=== PATIENT | male | born 1970 | race Caucasian/White ===

== ENCOUNTER → 2019-01-25 | Outpatient (CLI) | payer OTHER ==
--- NOTE | 2019-01-25 12:29 | CARD ---
MR#: [id number] Date of Study: 01/25/2019 Ordering Physician: URSZULA BO, Referring Physician: URSZULA BO, Tech: Pat Cole APPROVED REPORT EXAM: Two-dimensional and M-mode echocardiogram with Doppler and color Doppler. Other Information Quality : AverageHR: 55bpm INDICATION Chest Pain RISK FACTORS Hypertension Hyperlipidemia Diabetes Smoking 2D DIMENSIONS RVDd3.7 (2.9-3.5cm)Left Atrium(2D)3.0 (1.6-4.0cm) IVSd1.1 (0.7-1.1cm)Aortic Root(2D)3.3 (2.0-3.7cm) LVDd5.3 (3.9-5.9cm)LVOT Diameter2.1 (1.8-2.4cm) PWd1.2 (0.7-1.1cm)LVDs3.5 (2.5-4.0cm) FS (%) 34.3 %SV83.3 ml LVEF(%)62.8 (>50%) Aortic Valve AoV Peak Taurus.134.4cm/sAoV VTI28.5cm AO Peak GR.7.2mmHgLVOT Peak Taurus.90.0cm/s LVOT VTI 23.54cmAO Mean GR.4mmHg NEGRITO (VMAX)1.37zd1IEY (VTI)2.89cm2 Mitral Valve MV E Evsvjdwe50.8cm/sMV DECEL [id number] MV A Dhydepws47.7cm/sMV [id number] E/A Ratio1.2MVA (PHT)3.98cm2 TDI E/Lateral E'13.2E/Medial E'14.9 Tricuspid Valve RAP [id number] Peak Gr.20mmHg [id number] Pulmonary Vein S1 Ylvsavdh14.1cm/sD2 Drklaavl07.7cm/s PVa [id number] LEFT VENTRICLE The left ventricle is normal size. There is mild to moderate concentric left ventricular hypertrophy. The left ventricular systolic function is normal. The Ejection Fraction is 55-60%. There is normal L V segmental wall motion. RIGHT VENTRICLE The right ventricle is normal size. There is normal right ventricular wall thickness. The right ventr icular systolic function is normal. ATRIA The left atrium size is normal. The right atrium size is normal. The interatrial septum is intact wit h no evidence for an atrial septal defect or patent foramen ovale as noted on 2-D or Doppler imaging. AORTIC VALVE The aortic valve is normal in structure and function. Doppler and Color Flow revealed no significant aortic regurgitation. There is no significant aortic valvular stenosis. MITRAL VALVE The mitral valve is thickened but opens well. There is no evidence of mitral valve prolapse. There is no mitral valve stenosis. Doppler and Color Flow revealed no mitral valve regurgitation noted. TRICUSPID VALVE The tricuspid valve is normal in structure and function. Doppler and Color Flow revealed trace tricus pid regurgitation. There is no tricuspid valve stenosis. PULMONIC VALVE The pulmonic valve is not well visualized. Doppler and Color Flow revealed no pulmonic valvular regur gitation. GREAT VESSELS The aortic root is normal in size. The IVC is normal in size and collapses >50% with inspiration. PERICARDIAL EFFUSION There is no evidence of significant pericardial effusion. Critical Notification Critical Value: No <Conclusion> The left ventricular systolic function is normal. The Ejection Fraction is 55-60%. There is normal LV segmental wall motion. Doppler and Color Flow revealed trace tricuspid regurgitation. There is no evidence of significant pericardial effusion. Signed by : Urszula Bo, Electronically Approved : 01/25/2019 12:28:43
== END | disposition home or self-care (01) ==
LOC: ECHO 10:51
PROVIDERS: ATTEND Internal Medicine Cardiovascular Disease
DX: I11.9 Hypertensive heart disease without heart failure (principal); E78.5 Hyperlipidemia, unspecified; E11.9 Type 2 diabetes mellitus without complications; F17.200 Nicotine dependence, unspecified, uncomplicated
CPT/HCPCS: 93306